=== PATIENT | male | born 1990 | race Caucasian/White ===

== ENCOUNTER 2022-08-07 19:23 | Inpatient (IN) | payer OTHER, SELFPAY ==
--- NOTE | ~2022-08-07 | CT_ITS ---
EXAMINATION: CT ABDOMEN AND PELVIS WITHOUT CONTRAST CLINICAL INFORMATION: Right lower quadrant pain, question appendicitis COMPARISON: None TECHNIQUE: Multidetector volumetric imaging was performed from the superior aspect of the liver through the pubic symphysis. Sagittal and coronal reformatted images were obtained on the technologist's workstation. This CT examination was performed using dose optimization techniques as appropriate, variously including the following: *Automated exposure control *Adjustment of mA and/or kV according to patient size (this includes techniques or standardized protocols for targeted exams where dose is matched to indication/reason for exam; i.e. extremities or head) *Use of iterative reconstruction technique DLP: 736 mGy-cm FINDINGS: LUNG BASES: The visualized lung bases are unremarkable. LIVER, GALLBLADDER, AND BILIARY TREE: The liver is normal in size, shape, and attenuation. No focal hepatic lesion or biliary ductal dilatation is present. The gallbladder is unremarkable with no evidence of radiopaque gallstones, gallbladder wall thickening, or obvious pericholecystic inflammatory changes. PANCREAS: Unremarkable. SPLEEN: Unremarkable. ADRENAL GLANDS: Unremarkable. KIDNEYS AND URETERS: The kidneys are normal in size, shape, and attenuation. No hydronephrosis, hydroureter, or calculi seen. No perinephric stranding. BLADDER: Nearly empty and not well evaluated. GASTROINTESTINAL TRACT: The small and large bowel are unremarkable. The appendix is unremarkable. No free fluid or free air is seen. ABDOMINAL WALL: No significant hernia is appreciated. LYMPH NODES: Normal. VASCULAR: Unremarkable. PELVIC VISCERA: Unremarkable. OSSEOUS STRUCTURES: Unremarkable. CT/CT abdomen pelvis wo IV con IMPRESSION: No acute findings identified in the abdomen/pelvis. Normal appendix.
[2022-08-07 20:00] VITALS: BP 150/80; PULSE 131; RESP 20; TEMP 36.1; O2SAT 97; BMI 29.0
--- NOTE | 2022-08-07 20:03 | ED.GENADULT ---
HPI - General Adult General Chief complaint: Nausea/Vomiting/Diarrhea <Lianne Clay MD - Last Filed: 08/07/22 20:09> Stated complaint: vomit non-stop, abd pain <Lianne Clay MD - Last Filed: 08/07/22 20:09> Time Seen by Provider: 08/07/22 20:52 <Lianne Clay MD - Last Filed: 08/07/22 20:09> Source: patient <SUZANNE Alejo - Last Filed: 08/07/22 22:33> Mode of arrival: ambulatory <SUZANNE Alejo - Last Filed: 08/07/22 22:33> Limitations: no limitations <SUZANNE Alejo Last Filed: 08/07/22 22:33> History of Present Illness HPI narrative: 32-year-old male no past pertinent medical history presents with 3 days of abdominal pain that began in the epigastric area and then gravitated towards the right lower abdominal quadrant. Patient still has a past his appendix. Associated symptoms include nausea, vomiting, fever, chills. Patient states the pain is a stabbing pain that was at 1st colicky and now is constant. Patient states it feels like his right lower quadrant is going to explode. Patient has not been able to tolerate any p.o. intake over the past 3 days. Patient took Tylenol home, no relief. No known sick contacts. Patient T-max was 101.2 degrees this morning. Denies chest pain, shortness of breath, diarrhea, hematuria, increased urination, foul smell to urine, incontinence of urine or stool, lower back pain, numbness or tingling of the extremities, saddle paresthesias. <SUZANNE Alejo - Last Filed: 08/07/22 22:33> Related Data Allergies/adverse reactions: Allergies Allergy/AdvReac Type Severity Reaction Status Date / Time No Known Allergies Allergy Verified 08/07/22 20:04 <Lianne Clay MD - Last Filed: 08/07/22 20:09> Review of Systems Review of Systems: Constitutional : No Weight loss, + Fever, + Chills, No Fatigue, No Malaise ENT/Mouth : No sore throat, No Rhinorrhea Eyes: No Eye Pain, No Swelling, No Redness Cardiovascular : No Chest Pain, No SOB, No Dyspnea on Exertion, No Orthopnea, No Edema, No Palpitations Respiratory : No Cough, No Sputum, No Wheezing Gastrointestinal : + Nausea, + Vomiting, No Diarrhea, No Constipation, + abdominal Pain, No Hematochezia, No Melena Genitourinary : No Dysuria, No Urinary Frequency, No Hematuria, Musculoskeletal : No joint pain, No Myalgias, No Joint Swelling Skin : No Skin Lesions, No rash Neuro : No Weakness, No Numbness, No Dizziness, No Headache Psych : No Anxiety/Panic, No Depression All other systems reviewed and are negative <SUZANNE Alejo - Last Filed: 08/07/22 22:33> Yes all other systems are reviewed and are negative <SUZANNE Alejo - Last Filed: 08/07/22 22:33> [facility], [facility] Past Medical History Attestation statement: The following information was validated with the patient. <SUZANNE Alejo - Last Filed: 08/07/22 22:33> Source: old records reviewed and nursing notes reviewed <SUZANNE Alejo - Last Filed: 08/07/22 22:33> Social History Social History: Social History Advance Directives: No Advance Directives Information Provided: No <Linane Clay MD - Last Filed: 08/07/22 20:09> Physical Exam ED Vital Signs: Vital Signs - 24 hr 08/07/22 20:00 08/07/22 21:08 08/07/22 22:10 Temperature 97 F 97.8 F 98.1 F Pulse Rate 131 H 99 84 Respiratory Rate 20 18 18 Blood Pressure 150/80 H 150/82 H 138/82 Pulse Oximetry 97 96 100 Oxygen Delivery Method Room Air Room Air Room Air BMI result Body Mass Index 29.0 <Lianne Clay MD - Last Filed: 08/07/22 20:09> Vital Signs - 24 hr 08/07/22 20:00 08/07/22 21:08 08/07/22 22:10 Temperature 97 F 97.8 F 98.1 F Pulse Rate 131 H 99 84 Respiratory Rate 20 18 18 Blood Pressure 150/80 H 150/82 H 138/82 Pulse Oximetry 97 96 100 Oxygen Delivery Method Room Air Room Air Room Air BMI result Body Mass Index 29.0 Patient tachycardic and hypertensive, likely secondary to pain and/or infection <SUZANNE Alejo - Last Filed: 08/07/22 22:33> Appearance: Alert.? Oriented X3.? No acute distress.? Head: Normocephalic, atraumatic, no step-offs or deformities Eyes: Pupils equal, round and reactive to light.? CVS: Normal heart rate and rhythm.? Pulses normal.? Respiratory: No respiratory distress.? Breath sounds normal.? Abdomen: Soft and + tender to RLQ .? Skin: Skin warm and dry.? Normal skin color.? Normal skin turgor.? Extremities: No lower extremity edema.? No calf ttp. 5/5 strength to bilateral upper and lower extremities Back: No midline tenderness, no C-spine tenderness, full range of motion, no CVA tenderness bilaterally Neuro: Oriented X 3.? No motor deficit.? No sensory deficit. CN 2-12 intact <SUZANNE Alejo - Last Filed: 08/07/22 22:33> Course Course Course Narrative: 32M with 3 days nausea and vomiting with associated fevers and chills, -diarrhea. Pt drank etoh 4 days ago and also smoked weed 4 days ago. VS Reviewed GEN: NAD EARS: wnl THROAT: wnl LUNGS: CTAB CVS: RRR ABD: epigastric pain/ND <Lianne Clay MD - Last Filed: 08/07/22 20:09> Reevaluation(s) Reevaluation #1: CBC appears to have a leukocytosis concerns for reactive leukocytosis versus infection based off patient's presentation. Patient noted to be hemoconcentrated with elevated hemoglobin and hematocrit, receiving IV fluids at this time. Also noted to have elevated platelets likely secondary to poor p.o. intake/dehydration. Patient noted to have an elevated anion gap as well as elevated BUN and creatinine likely secondary to poor p.o. intake/dehydration. Patient's lactic acid 3.5 likely secondary to dehydration. Ethanol negative. Lipase within normal limits. Flu/COVID negative. Patient was given Zosyn due to leukocytosis and initial presentation. Being hydrated with 30 cc/kilos bolus. CT of the abdomen and pelvis with no acute findings. Normal appendix. At this time patient not tolerating p.o., will be admitted to the hospitalist for acute kidney injury, dehydration and inability to tolerate p.o.. <SUZANNE Alejo - Last Filed: 08/07/22 22:33> Time: 22:31 <SUZANNE Alejo - Last Filed: 08/07/22 22:33> Medications Administered Discontinued Medications Generic Name Dose Route Start Last Admin Trade Name Freq PRN Reason Stop Dose Admin Sodium Chloride 1,000 mls @ 999 mls/hr 08/07/22 20:15 08/07/22 21:08 Ns IV 08/07/22 21:15 Not Given .Q1H1M IZABELA Sodium Chloride 2,993.7 mls @ 2,993.7 mls/hr 08/07/22 20:52 08/07/22 22:16 Ns 30 ml/kg infuse over 1 hr (2993.7 ml) 08/07/22 21:51 Infused IV Infusion .Q1H STA Piperacillin Sod/Tazobactam 50 mls @ 100 mls/hr 08/07/22 20:52 08/07/22 22:17 Sod 3.375 gm/ Sodium Chloride IV 08/07/22 21:21 Infused ONCE ONE Infusion Morphine Sulfate 4 mg 08/07/22 21:15 08/07/22 21:23 Morphine Sulfate 4 Mg/Ml Cartridge IVPUSH 08/07/22 21:16 4 mg ONCE ONE Administration Protocol Ondansetron HCl 4 mg 08/07/22 20:05 08/07/22 20:07 Ondansetron Odt 4 Mg Tab.Rapdis TRANSLINGU 08/07/22 20:06 4 mg ONCE ONE Administration Ondansetron HCl 4 mg 08/07/22 20:52 08/07/22 21:09 Ondansetron Hcl 4 Mg/2 Ml Vial IVPUSH 08/07/22 20:53 4 mg ONCE ONE Administration <Lianne Clay MD - Last Filed: 08/07/22 20:09> Medications Administered Discontinued Medications Generic Name Dose Route Start Last Admin Trade Name Freq PRN Reason Stop Dose Admin Sodium Chloride 1,000 mls @ 999 mls/hr 08/07/22 20:15 08/07/22 21:08 Ns IV 08/07/22 21:15 Not Given .Q1H1M IZABELA Sodium Chloride 2,993.7 mls @ 2,993.7 mls/hr 08/07/22 20:52 08/07/22 22:16 Ns 30 ml/kg infuse over 1 hr (2993.7 ml) 08/07/22 21:51 Infused IV Infusion .Q1H STA Piperacillin Sod/Tazobactam 50 mls @ 100 mls/hr 08/07/22 20:52 08/07/22 22:17 Sod 3.375 gm/ Sodium Chloride IV 08/07/22 21:21 Infused ONCE ONE Infusion Morphine Sulfate 4 mg 08/07/22 21:15 08/07/22 21:23 Morphine Sulfate 4 Mg/Ml Cartridge IVPUSH 08/07/22 21:16 4 mg ONCE ONE Administration Protocol Ondansetron HCl 4 mg 08/07/22 20:05 08/07/22 20:07 Ondansetron Odt 4 Mg Tab.Rapdis TRANSLINGU 08/07/22 20:06 4 mg ONCE ONE Administration Ondansetron HCl 4 mg 08/07/22 20:52 08/07/22 21:09 Ondansetron Hcl 4 Mg/2 Ml Vial IVPUSH 08/07/22 20:53 4 mg ONCE ONE Administration <SUZANNE Alejo - Last Filed: 08/07/22 22:33> Medical Decision Making Medical Decision Making MDM Narrative: 32-year-old male presents with right lower quadrant pain, anorexia, inability to keep down p.o.. Physical examination with significant tenderness right lower quadrant. Patient actively vomiting upon exam. Concerns for possible appendicitis versus cholecystitis. Unlikely diverticulitis. Other differentials include viral infection. Concerns for dehydration, will rule out acute kidney injury or electrolyte abnormalities. Plan at this time labs, imaging, IV hydration will give Zofran for nausea vomiting. Will give morphine for pain. <SUZANNE Alejo - Last Filed: 08/07/22 22:33> Critical Care Time Critical Care Time Critical Care Time: No <SUZANNE Alejo - Last Filed: 08/07/22 22:33> Discharge Plan Discharge Clinical Impression: Lactic acidosis, Abdominal pain, NORA (acute kidney injury), Nausea & vomiting <Lianne Clay MD - Last Filed: 08/07/22 20:09> Patient Disposition: Admitted As Inpatient <Lianne Clay MD - Last Filed: 08/07/22 20:09>
[2022-08-07] MEDS: Ondansetron ODT 4 MG TAB.RAPDIS TRANSLINGU (20:07)
[2022-08-07 20:24] LABS: MANUAL DIFF FLAG NO
[2022-08-07 20:25] LABS: Basophils Absolute Auto 0.1 X10*3/uL (0.0-0.2); Basophils Percent Auto 0.4 % (0-2); Hemoglobin 18.8 g/dl (14.0-18.0); Imm Gran Abs Auto 0.08 X10*3/uL (0.00-0.03); Imm Gran Pct Auto 0.4 % (0.0-0.4); Lymphocytes Percent Auto 19.3 % (20-40); Mean Corpuscular HGB Conc 34.8 g/dl (31.0-36.0); Mean Corpuscular Hemoglobin 29.1 pg (27.0-33.0); Mean Corpuscular Volume 83.7 fL (80.0-98.0); Mean Platelet Volume 8.8 fL (9.4-12.4); Monocytes Absolute Auto 1.7 X10*3/uL (0.1-1.2); Monocytes Percent Auto 8.3 % (2-11); Neutrophils Absolute Auto 14.7 x10*3/uL (2.0-8.3); Neutrophils Percent Auto 71.6 % (45-73); Platelet Count 419 X10*3/uL (160-400); Red Blood Count 6.45 X10*6/uL (4.60-5.80); Red Cell Distribution Width 12.6 % (11.0-16.0); SCAN SMEAR FLAG 1; White Blood Count 20.6 X10*3/uL (4.8-10.8)
[2022-08-07 20:42] LABS: COVID-19 Test Negative (Negative); IDNOW Serial# 16C4AD1C
[2022-08-07 20:43] LABS: IDNOW Serial# BCCEAD1C; Influenza A Negative (Negative); Influenza B2 Negative (Negative)
[2022-08-07 20:48] LABS: Alanine Aminotransferase 35 U/L (0-40); Albumin Level 5.8 g/dL (3.5-5.0); Alkaline Phosphatase 143 U/L (39-117); Anion Gap 24 (12-20); Aspartate Amino Transferase 34 U/L (5-37); Bilirubin Total 1.5 mg/dL (0.0-1.0); Blood Urea Nitrogen 29 mg/dL (9-16); Calcium 11.6 mg/dL (8.4-10.2); Carbon Dioxide 21 mmol/L (22-29); Chloride 97 mmol/L (96-108); Creatinine Clr Calc Pharmacy 37.2; Estimated Glomerular Filt Rate 20; Ethanol < 10 mg/dL; Glucose Random 168 mg/dL (60-115); Lipase 13 U/L (8-78); Sodium 138 mmol/L (135-145); Total Protein 9.8 g/dL (6.5-8.0)
[2022-08-07 21:08] VITALS: BP 150/82; PULSE 99; RESP 18; TEMP 36.6; O2SAT 96
[2022-08-07] MEDS: ondansetron HCL 4 MG/2 ML VIAL IVPUSH ×2 (21:09→23:25)
[2022-08-07] MEDS: Piperacillin Sodium/Tazobactam 3.375 GM in 0.9 % Sodium Chloride 50 ML IV (21:09)
--- NOTE | 2022-08-07 21:09 | PC.NURSE ---
Care of patient in main ED assumed now. 2 PIVs immediately established and patient to CT.
[2022-08-07] MEDS: 0.9 % Sodium Chloride 2,993.7 ML 2993.7 ML IV (21:13)
[2022-08-07] MEDS: Morphine Sulfate 4 MG/ML CARTRIDGE IVPUSH (21:23)
[2022-08-07 21:24] LABS: Glucose, Whole Blood 168 mg/dL (60-115)
[2022-08-07 21:28] LABS: Lactic Acid 3.5 mmol/L (0.5-2.0)
--- NOTE | 2022-08-07 21:51 | PM.CNGS ---
History of Present Illness Consult details Consult date: 08/08/22 Reason for consult: abdominal pain Requesting physician: Danielle Agustin Narrative: The pt is a 32y male with 3 days of vomiting & abdominal pain who presented with RLQ abd pain, vomiting, dehydration, lactic acidosis to 3.5 & leukocytosis. I was asked to assist in his evaluation due to concerns of acute surgical pathology such as appendicitis. In after roughly 12 hours of admission and IV hydration and notes that he is improved but continues to have crampy right lower quadrant abdominal pain. He denies any chronic watery diarrhea or bloody diarrhea and notes that this is never happened before. He does report daily cannabis use and notes that he was using an unknown street drug and is positive for opiates in his toxicology, however it is unclear if this is secondary to meds administered in the emergency department or other use. The patient otherwise denies chest pain, difficulty breathing, neurologic symptoms and does note that he feels better but is still having crampy abdominal pain in the right lower quadrant. He denies any flatus & BM. Review of Systems Review of Systems: Yes all other systems are reviewed and are negative Constitutional: Constitutional: Reports as per [facility] Past Medical History Medical History Marijuana abuse Tobacco abuse Social History Social History Household Members: Family Housing: Apartment Patient Tobacco Use Status: Current everyday Tobacco user Tobacco use type: Cigarette Second Hand Smoke Exposure: No Substance Use Type: Marijuana Meds Allergies Allergy/AdvReac Type Severity Reaction Status Date / Time No Known Allergies Allergy Verified 08/07/22 20:04 Active Medications: Current Medications Sodium Chloride (Ns) 1,000 mls @ 999 mls/hr IV .Q1H1M IZABELA Stop: 08/07/22 22:30 Sodium Chloride (Ns) 1,000 mls @ 999 mls/hr IV .Q1H1M IZABELA Stop: 08/07/22 22:30 Sodium Chloride (Ns) 1,000 mls @ 999 mls/hr IV .Q1H1M IZABELA Stop: 08/07/22 22:30 Physical Exam Vital Signs: Vital Signs: Last Vital Signs Temp 97.8 F 08/07/22 21:08 Pulse 99 08/07/22 21:08 Resp 18 08/07/22 21:08 BP 150/82 H 08/07/22 21:08 Pulse Ox 96 08/07/22 21:08 O2 Del Method 08/07/22 21:08 BMI result Body Mass Index 29.0 The patient is non-toxic & in good spirits NC/AT, PERRLA, EOMI Mood, affect & judgment all appear appropriate Sclera anicteric conjunctiva pink and moist Oropharynx is clear with no aphthous ulcers, Mallampati class 4, mucous membranes moist Neck is supple with no masses or adenopathy Heart is regular, normal S1-S2 no rubs or murmurs Lungs are clear and equal anteriorly with no audible wheezing, rubs or dullness to percussion No CVA tenderness present Abdomen is overweight with no demonstrable hernias. Abdomen is soft with no rebound, rigidity or guarding. no masses or bruits are present. Rectal exam is deferred Skin has good turgor and is free of rashes Extremities free of cyanosis clubbing edema Results Labs Result diagrams: 08/08/22 06:21 08/08/22 06:21 Labs: Abnormal lab results 08/07/22 08/07/22 08/07/22 Range/Units 20:16 20:16 21:03 WBC 20.6 H (4.8-10.8) X10*3/uL RBC 6.45 H (4.60-5.80) X10*6/uL Hgb 18.8 H (14.0-18.0) g/dl Hct 54.0 H (42.0-52.0) % Plt Count 419 H (160-400) X10*3/uL MPV 8.8 L (9.4-12.4) fL Lymph % (Auto) 19.3 L (20-40) % [place] # (Auto) 1.7 H (0.1-1.2) X10*3/uL Abs Immat Gran (auto) 0.08 H (0.00-0.03) X10*3/uL Absolute Neuts (auto) 14.7 H (2.0-8.3) x10*3/uL Carbon Dioxide 21 L (22-29) mmol/L Anion Gap 24 H (12-20) BUN 29 H (9-16) mg/dL Creatinine 3.54 H (0.5-1.4) mg/dL POC Glucose (60-115) mg/dL Random Glucose 168 H (60-115) mg/dL Lactic Acid 3.5 H* (0.5-2.0) mmol/L Calcium 11.6 H (8.4-10.2) mg/dL Total Bilirubin 1.5 H (0.0-1.0) mg/dL Alkaline Phosphatase 143 H (39-117) U/L Total Protein 9.8 H (6.5-8.0) g/dL Albumin 5.8 H (3.5-5.0) g/dL 08/07/22 Range/Units 21:20 WBC (4.8-10.8) X10*3/uL RBC (4.60-5.80) X10*6/uL Hgb (14.0-18.0) g/dl Hct (42.0-52.0) % Plt Count (160-400) X10*3/uL MPV (9.4-12.4) fL Lymph % (Auto) (20-40) % [place] # (Auto) (0.1-1.2) X10*3/uL Abs Immat Gran (auto) (0.00-0.03) X10*3/uL Absolute Neuts (auto) (2.0-8.3) x10*3/uL Carbon Dioxide (22-29) mmol/L Anion Gap (12-20) BUN (9-16) mg/dL Creatinine (0.5-1.4) mg/dL POC Glucose 168 H (60-115) mg/dL Random Glucose (60-115) mg/dL Lactic Acid (0.5-2.0) mmol/L Calcium (8.4-10.2) mg/dL Total Bilirubin (0.0-1.0) mg/dL Alkaline Phosphatase (39-117) U/L Total Protein (6.5-8.0) g/dL Albumin (3.5-5.0) g/dL Short CBC 08/07/22 Range/Units 20:16 WBC 20.6 H (4.8-10.8) X10*3/uL Hgb 18.8 H (14.0-18.0) g/dl Hct 54.0 H (42.0-52.0) % Plt Count 419 H (160-400) X10*3/uL BMP 08/07/22 20:16 Sodium 138 Potassium 4.0 Chloride 97 Carbon Dioxide 21 L BUN 29 H Creatinine 3.54 H Calcium 11.6 H Liver Function 08/07/22 Range/Units 20:16 Total Bilirubin 1.5 H (0.0-1.0) mg/dL AST 34 (5-37) U/L ALT 35 (0-40) U/L Alkaline Phosphatase 143 H (39-117) U/L Albumin 5.8 H (3.5-5.0) g/dL All other labs normal. Imaging Abdomen CT scan report/results: report reviewed and image reviewed CT scan - pelvis: report reviewed and image reviewed Assessment and Plan (1) Abdominal pain: Status: Acute (2) Lactic acidosis: Status: Acute (3) NORA (acute kidney injury): Status: Acute Plan I've personally reviewed the CT images & CT report & concur with the radiologist that there's no obvious acute surgical pathology, free air or intra-abdominal abscess, and a normal appendix is seen. Given this, I suspect severe dehydration is causing severe intestinal spasms that should resolve with aggressive IVF hydration. In my interpretation of the CT, the ascending colon may have some edema in the wall, but it may be artifactual from intraluminal radio opaque material. If no overnight improvement with IV hydration, a repeat CT with oral & IV contrast may be helpful, assuming improvement of BUN & Creatinine. Keep NPO until vomiting resolves. Supportive meds/antiemetics; trend labs. Tox screen is pending. Will follow; please call me with surgical questions. ADDENDUM 08/08/2022 0821 The patient's exam and interval improved go against appendicitis or other acute surgical pathology. Given the normal CT and improvement, I suspect his white count will normalize with hydration. Patient may have cyclical vomiting and dehydration related to his daily marijuana use and may benefit from counseling. Will sign off. Please call me if there are any surgical concerns. Procedures Date of Service Date of Service: 08/08/22
--- NOTE | 2022-08-07 22:05 | PM.IMHP ---
History of Present Illness Date of Service: 08/08/22 Chief Complaint: Abdominal Pain, Nausea/vomiting This is a 32-year-old male with pertinent history of tobacco use disorder, marijuana use disorder presents to the emergency department for evaluation abdominal pain/nausea/vomiting. Patient states it started 3 days prior to presentation. His last meal prior to the episode was [employer]. States he could not keep anything down and hence has had decreased p.o. intake over the last 2 days. Also has associated fever and chills. No blood in vomitus. No diarrhea. Abdominal pain is in the right lower quadrant, nonradiating, intermittent and without any relieving factors. Patient tried Tylenol at home but no relief. No sick contacts. He denies chest discomfort, palpitations, shortness of breath, changes in urinary or bowel habits. In the emergency department, NORA was noted. General surgery was consulted who requested admission and will evaluate the patient in a.m. Review of Systems Constitutional: Constitutional: Reports chills and Reports fever(s) Cardiovascular: Cardiovascular: Reports no additional cardiovascular complaints Respiratory: Respiratory: Reports no additional respiratory complaints Gastrointestinal: Gastrointestinal: Reports abdominal pain, Reports nausea and Reports vomiting [facility] Medical History (Updated 08/08/22 @ 00:06 by Madiha Hurst MD) Marijuana abuse Tobacco abuse Functional capacity: independent ambulation Pertinent family history: Does not know of significant medical history in family members Social History Advance Directives: No Advance Directives Information Provided: No Meds Allergies Allergy/AdvReac Type Severity Reaction Status Date / Time No Known Allergies Allergy Verified 08/07/22 20:04 Active Medications: Current Medications Sodium Chloride (Ns) 1,000 mls @ 999 mls/hr IV .Q1H1M IZABELA Stop: 08/07/22 22:30 Sodium Chloride (Ns) 1,000 mls @ 999 mls/hr IV .Q1H1M IZABELA Stop: 08/07/22 22:30 Sodium Chloride (Ns) 1,000 mls @ 999 mls/hr IV .Q1H1M IZABELA Stop: 08/07/22 22:30 Pharmacy Consult (Consult Rx Perform Med Rec) 1 each MISCELLANE ONCE PRN PRN Reason: Consult order Physical Exam Vital Signs and Narrative: Vital Signs: Last Vital Signs Temp 97.8 F 08/07/22 21:08 Pulse 99 08/07/22 21:08 Resp 18 08/07/22 21:08 BP 150/82 H 08/07/22 21:08 Pulse Ox 96 08/07/22 21:08 O2 Del Method 08/07/22 21:08 BMI result Body Mass Index 29.0 Middle-aged male lying in bed in mild distress Neck supple, no JVD Regular rate and rhythm, S1-S2 heard Regular breath sounds bilaterally, no wheezing or crackles appreciated Abdomen with generalized tenderness, no guarding, no rigidity, no rebound tenderness Patient is awake, alert and oriented to self, place, time and person ; no focal motor deficit Psych: Normal mood No pedal edema Results Labs CBC and Chem 7: 08/07/22 20:16 08/07/22 20:16 Labs: Laboratory Results - last 24 hr 08/07/22 08/07/22 08/07/22 20:16 20:16 20:16 MCV 83.7 MCH 29.1 MCHC 34.8 RDW 12.6 Plt Count 419 H MPV 8.8 L Immature Gran % (Auto) 0.4 Neut % (Auto) 71.6 Lymph % (Auto) 19.3 L Robertson % (Auto) 8.3 Eos % (Auto) 0.0 Baso % (Auto) 0.4 Lymph # (Auto) 4.0 Robertson # (Auto) 1.7 H Eos # (Auto) 0.0 Baso # (Auto) 0.1 Abs Immat Gran (auto) 0.08 H Absolute Neuts (auto) 14.7 H Absolute Nucleated RBC 0.000 Nucleated RBC % (auto) 0.0 Anion Gap 24 H Estim Creat Clear Calc 37.2 Estimated GFR 20 POC Glucose Random Glucose 168 H Lactic Acid Calcium 11.6 H Total Bilirubin 1.5 H AST 34 ALT 35 Alkaline Phosphatase 143 H Total Protein 9.8 H Albumin 5.8 H Lipase 13 Ethyl Alcohol < 10 COVID-19 (RADHA) COVID-19 Clin Com Influenza Type A (SEB) Negative Influenza Type B (SEB) Negative Influenza A & B Note See Note 08/07/22 08/07/22 08/07/22 20:16 21:03 21:20 MCV MCH MCHC RDW Plt Count MPV Immature Gran % (Auto) Neut % (Auto) Lymph % (Auto) Robertson % (Auto) Eos % (Auto) Baso % (Auto) Lymph # (Auto) Robertson # (Auto) Eos # (Auto) Baso # (Auto) Abs Immat Gran (auto) Absolute Neuts (auto) Absolute Nucleated RBC Nucleated RBC % (auto) Anion Gap Estim Creat Clear Calc Estimated GFR POC Glucose 168 H Random Glucose Lactic Acid 3.5 H* Calcium Total Bilirubin AST ALT Alkaline Phosphatase Total Protein Albumin Lipase Ethyl Alcohol COVID-19 (RADHA) Negative COVID-19 Clin Com See Note Influenza Type A (SEB) Influenza Type B (SEB) Influenza A & B Note Imaging Radiologist's Impressions: Impressions Abdomen/Pelvis CT 08/07/22 21:13 IMPRESSION: No acute findings identified in the abdomen/pelvis. Normal appendix. Assessment and Plan (1) NORA (acute kidney injury): Status: Acute (2) Lactic acidosis: Status: Acute (3) Abdominal pain: Status: Acute (4) Tobacco abuse: Status: Acute (5) Marijuana abuse: Status: Acute Plan This is a 32-year-old male with pertinent history of tobacco use disorder, marijuana use disorder presents to the emergency department for evaluation abdominal pain/nausea/vomiting. #. Abdominal pain/nausea/vomiting -CT abdomen pelvis unrevealing. General surgery consulted from the ER, appreciate assistance. Treat symptomatically for now. Defer antibiotics. Resuscitating with IV crystalloids. -UDS positive for marijuana, ?cannabis hyperemesis syndrome. Initiating capsaicin cream. #. Acute kidney injury, stage III -prerenal in the setting of intravascular volume depletion. Monitor with fluid resuscitation. Avoid nephrotoxins #. Lactic acidosis type A: Trended down with IV crystalloids #. Relative polycythemia: Due to above #. Tobacco use disorder: Refused nicotine patch DVT prophylaxis: None. Patient is ambulatory Full code Diet: NPO Admit as inpatient for IV fluid resuscitation in a patient with acute kidney injury/lactic acidosis Quality Stroke Does the patient have a stroke diagnosis?: No VTE Prior VTE?: No VTE Risk Level:: Medical - low VTE Device Contraindication: Treatment Not Indicated VTE Drug Contraindication: Treatment Not Indicated
[2022-08-07 22:10] VITALS: BP 138/82; PULSE 84; RESP 18; TEMP 36.7; O2SAT 100
[2022-08-07 22:30] VITALS: PULSE 65; RESP 17; TEMP 37.2; O2SAT 99
[2022-08-07 22:55] LABS: Appearance Urine Clear; Color Urine Yellow; Glucose Urine UA Negative (Negative); Leukocyte Esterase Urine Negative (Negative); Nitrite Urine Negative (Negative); PH 7.5 (5.0-9.0); UMIC TRIGGER UACC YES; Urine Blood Trace (Negative); Urine Ketones Trace mg/dL (Negative); Urine Protein 30 (1+) mg/dL (Neg-Trace)
[2022-08-07 23:10] LABS: Reflex Lactate? Lactic Acid Added
[2022-08-07 23:11] LABS: Amphetamine Screen Urine Not Detected (Not Detect); Barbiturates, Urine Not Detected (Not Detect); Benzodiazepines Screen Urine Not Detected (Not Detect); Cannabinoid Screen Urine POSITIVE (Not Detect); Cocaine Screen Urine Not Detected (Not Detect); Fentanyl, urine Not Detected (Not Detect); Opiate Screen Urine POSITIVE (Not Detect); Phencyclidine Screen Urine Not Detected (Not Detect)
[2022-08-07 23:16] LABS: Bacteria Urine None Seen (None Seen); Leucine Crystal Present; RBC Urine 0-2 /HPF (0-2); Squamous Epithelial Cell Urine 0-2 /HPF (0-2); WBC Urine 0-5 /HPF (0-5)
[2022-08-07] MEDS: 0.9 % Sodium Chloride Flush 3 ML SYRINGE IVFLUSH (23:24)
[2022-08-07 23:59] LABS: ~Lactic Acid-LAB USE ONLY 1.9 mmol/L (0.5-2.0)
[2022-08-08] VITALS: RESP 19
[2022-08-08] MEDS: LORazepam 1 MG TABLET 2 MG PO
[2022-08-08] MEDS: Melatonin 3 MG TABLET 6 MG PO (02:03)
[2022-08-08 02:06] VITALS: BP 117/68; PULSE 79; RESP 17; TEMP 36.5; O2SAT 96
[2022-08-08 04:11] VITALS: BP 141/74; PULSE 71; RESP 18; TEMP 36.9; O2SAT 97
[2022-08-08 05:22] LABS: Estimated Average Glucose 108 mg/dL; Hemoglobin A1c % 5.4 %
[2022-08-08] MEDS: ondansetron HCL 4 MG/2 ML VIAL IVPUSH ×3 (05:36→15:28)
[2022-08-08 07:12] LABS: MANUAL DIFF FLAG NO
[2022-08-08 07:19] LABS: Basophils Absolute Auto 0.1 X10*3/uL (0.0-0.2); Basophils Percent Auto 0.4 % (0-2); Eosinophils Percent Auto 0.2 % (0-4); Hematocrit 49.2 % (42.0-52.0); Hemoglobin 16.2 g/dl (14.0-18.0); Imm Gran Abs Auto 0.11 X10*3/uL (0.00-0.03); Imm Gran Pct Auto 0.7 % (0.0-0.4); Lymphocytes Absolute Auto 2.9 X10*3/uL (1.2-4.9); Lymphocytes Percent Auto 17.3 % (20-40); Mean Corpuscular HGB Conc 32.9 g/dl (31.0-36.0); Mean Corpuscular Hemoglobin 28.6 pg (27.0-33.0); Mean Corpuscular Volume 86.8 fL (80.0-98.0); Mean Platelet Volume 9.2 fL (9.4-12.4); Monocytes Absolute Auto 1.4 X10*3/uL (0.1-1.2); Monocytes Percent Auto 8.5 % (2-11); Neutrophils Absolute Auto 12.1 x10*3/uL (2.0-8.3); Neutrophils Percent Auto 72.9 % (45-73); Platelet Count 369 X10*3/uL (160-400); Red Blood Count 5.67 X10*6/uL (4.60-5.80); Red Cell Distribution Width 12.7 % (11.0-16.0); White Blood Count 16.6 X10*3/uL (4.8-10.8)
[2022-08-08 07:40] LABS: Anion Gap 18 (12-20); Blood Urea Nitrogen 21 mg/dL (9-16); Carbon Dioxide 24 mmol/L (22-29); Chloride 101 mmol/L (96-108); Estimated Glomerular Filt Rate 52; Glucose Random 116 mg/dL (60-115); Potassium 3.9 mmol/L (3.3-5.1); Sodium 139 mmol/L (135-145)
[2022-08-08 07:45] VITALS: BP 126/58; PULSE 86; RESP 18; TEMP 37.1; O2SAT 96
[2022-08-08 08:02] LABS: C Reactive Protein 0.58 mg/dL (< or = 0.50)
[2022-08-08] MEDS: 0.9 % Sodium Chloride Flush 3 ML SYRINGE IVFLUSH (09:18)
--- NOTE | 2022-08-08 09:47 | HO.PM.IMPN ---
Subjective Subjective Date of Service: 08/08/22 Interval History: severe nausea abd pain relieved by hot showers uses 3g THC daily Review of Systems Review of Systems: Yes all other systems are reviewed and are negative Physical Exam Vital Signs: Vital Signs: Last Vital Signs Temp 98.8 F 08/08/22 07:45 Pulse 86 08/08/22 07:45 Resp 18 08/08/22 07:45 BP 126/58 L 08/08/22 07:45 Pulse Ox 96 08/08/22 07:45 O2 Del Method 08/08/22 07:45 BMI result Body Mass Index 29.0 Gen: in no acute distress HEENT: sclera anicteric, moist mucus membranes Neck: supple Lungs: clear to auscultation bilaterally Heart: regular rate and rhythm, no murmurs Abd: soft, diffuse tenderness, no guarding, non-distended Ext: no edema Skin: warm/well-perfused Neuro: alert and oriented x3, no focal findings Psych: appropriate affect Objective Data Active Medications Acetaminophen (Acetaminophen 325 Mg Tablet) 650 mg PO Q6H PRN PRN Reason: Pain, Mild (Pain Scale 1-3) Capsaicin (Capsaicin 0.025% Cream 60 Gm Tube) 1 appl TOPICAL QID [facility]; Protocol Last Admin: 08/08/22 09:25 Dose: Not Given Documented By: TESS Non-Admin Reason: not available, called pharmacy to deliver Melatonin (Melatonin 3 Mg Tablet) 6 mg PO BEDTIME PRN PRN Reason: Insomnia Last Admin: 08/08/22 02:03 Dose: 6 mg Documented By: CRUZ Ondansetron HCl (Ondansetron Hcl 4 Mg/2 Ml Vial) 4 mg IVPUSH Q8H PRN PRN Reason: Nausea and Vomiting Last Admin: 08/08/22 05:36 Dose: 4 mg Documented By: VIRGIL Sodium Chloride (0.9 % Sodium Chloride Flush 3 Ml Syringe) 3 ml IVFLUSH [facility] Last Admin: 08/08/22 09:18 Dose: 3 ml Documented By: TESS Labs CBC & Chem 7: 08/08/22 06:21 08/08/22 06:21 Labs: Laboratory Results - last 24 hr 08/07/22 08/07/22 08/07/22 20:16 20:16 20:16 MCV 83.7 MCH 29.1 MCHC 34.8 RDW 12.6 Plt Count 419 H MPV 8.8 L Immature Gran % (Auto) 0.4 Neut % (Auto) 71.6 Lymph % (Auto) 19.3 L [place] % (Auto) 8.3 Eos % (Auto) 0.0 Baso % (Auto) 0.4 Lymph # (Auto) 4.0 [place] # (Auto) 1.7 H Eos # (Auto) 0.0 Baso # (Auto) 0.1 Abs Immat Gran (auto) 0.08 H Absolute Neuts (auto) 14.7 H Absolute Nucleated RBC 0.000 Nucleated RBC % (auto) 0.0 Anion Gap 24 H Estim Creat Clear Calc 37.2 Estimated GFR 20 POC Glucose Random Glucose 168 H Estimat Average Glucose Hemoglobin A1c % Lactic Acid Lactic Acid F/U @ 2Hr Calcium 11.6 H Total Bilirubin 1.5 H AST 34 ALT 35 Alkaline Phosphatase 143 H C-Reactive Protein Total Protein 9.8 H Albumin 5.8 H Lipase 13 Urine Color Urine Appearance Urine pH Ur Specific [place] Urine Protein Urine Glucose (UA) Urine Ketones Urine Blood Urine Nitrite Ur Leukocyte Esterase Urine RBC Urine WBC Ur Squamous Epith Cells Leucine Crystals Urine Bacteria Hyaline Casts Urine Opiates Screen Urine Fentanyl Screen Ur Barbiturates Screen Ur Phencyclidine Scrn Ur Amphetamines Screen U Benzodiazepines Scrn Urine Cocaine Screen U Marijuana (THC) Screen Ethyl Alcohol < 10 COVID-19 (RADHA) COVID-19 Clin Com Influenza Type A (SEB) Negative Influenza Type B (SEB) Negative Influenza A & B Note See Note 08/07/22 08/07/22 08/07/22 20:16 20:16 21:03 MCV MCH MCHC RDW Plt Count MPV Immature Gran % (Auto) Neut % (Auto) Lymph % (Auto) [place] % (Auto) Eos % (Auto) Baso % (Auto) Lymph # (Auto) [place] # (Auto) Eos # (Auto) Baso # (Auto) Abs Immat Gran (auto) Absolute Neuts (auto) Absolute Nucleated RBC Nucleated RBC % (auto) Anion Gap Estim Creat Clear Calc Estimated GFR POC Glucose Random Glucose Estimat Average Glucose 108 Hemoglobin A1c % 5.4 Lactic Acid 3.5 H* Lactic Acid F/U @ 2Hr Calcium Total Bilirubin AST ALT Alkaline Phosphatase C-Reactive Protein Total Protein Albumin Lipase Urine Color Urine Appearance Urine pH Ur Specific [place] Urine Protein Urine Glucose (UA) Urine Ketones Urine Blood Urine Nitrite Ur Leukocyte Esterase Urine RBC Urine WBC Ur Squamous Epith Cells Leucine Crystals Urine Bacteria Hyaline Casts Urine Opiates Screen Urine Fentanyl Screen Ur Barbiturates Screen Ur Phencyclidine Scrn Ur Amphetamines Screen U Benzodiazepines Scrn Urine Cocaine Screen U Marijuana (THC) Screen Ethyl Alcohol COVID-19 (RADHA) Negative COVID-19 Clin Com See Note Influenza Type A (SEB) Influenza Type B (SEB) Influenza A & B Note 08/07/22 08/07/22 08/07/22 21:20 22:45 22:45 MCV MCH MCHC RDW Plt Count MPV Immature Gran % (Auto) Neut % (Auto) Lymph % (Auto) [place] % (Auto) Eos % (Auto) Baso % (Auto) Lymph # (Auto) [place] # (Auto) Eos # (Auto) Baso # (Auto) Abs Immat Gran (auto) Absolute Neuts (auto) Absolute Nucleated RBC Nucleated RBC % (auto) Anion Gap Estim Creat Clear Calc Estimated GFR POC Glucose 168 H Random Glucose Estimat Average Glucose Hemoglobin A1c % Lactic Acid Lactic Acid F/U @ 2Hr Calcium Total Bilirubin AST ALT Alkaline Phosphatase C-Reactive Protein Total Protein Albumin Lipase Urine Color Yellow Urine Appearance Clear Urine pH 7.5 Ur Specific [place] 1.020 Urine Protein 30 (1+) H Urine Glucose (UA) Negative Urine Ketones Trace Urine Blood Trace H Urine Nitrite Negative Ur Leukocyte Esterase Negative Urine RBC 0-2 Urine WBC 0-5 Ur Squamous Epith Cells 0-2 Leucine Crystals Present Urine Bacteria None Seen Hyaline Casts 11-20 Urine Opiates Screen POSITIVE H Urine Fentanyl Screen Not Detected Ur Barbiturates Screen Not Detected Ur Phencyclidine Scrn Not Detected Ur Amphetamines Screen Not Detected U Benzodiazepines Scrn Not Detected Urine Cocaine Screen Not Detected U Marijuana (THC) Screen POSITIVE H Ethyl Alcohol COVID-19 (RADHA) COVID-19 Clin Com Influenza Type A (SEB) Influenza Type B (SEB) Influenza A & B Note 08/07/22 08/08/22 08/08/22 23:38 06:21 06:21 MCV 86.8 MCH 28.6 MCHC 32.9 RDW 12.7 Plt Count 369 MPV 9.2 L Immature Gran % (Auto) 0.7 H Neut % (Auto) 72.9 Lymph % (Auto) 17.3 L [place] % (Auto) 8.5 Eos % (Auto) 0.2 Baso % (Auto) 0.4 Lymph # (Auto) 2.9 [place] # (Auto) 1.4 H Eos # (Auto) 0.0 Baso # (Auto) 0.1 Abs Immat Gran (auto) 0.11 H Absolute Neuts (auto) 12.1 H Absolute Nucleated RBC 0.000 Nucleated RBC % (auto) 0.0 Anion Gap 18 Estim Creat Clear Calc 85.0 Estimated GFR 52 POC Glucose Random Glucose 116 H Estimat Average Glucose Hemoglobin A1c % Lactic Acid Lactic Acid F/U @ 2Hr 1.9 Calcium 10.0 D Total Bilirubin AST ALT Alkaline Phosphatase C-Reactive Protein 0.58 H Total Protein Albumin Lipase Urine Color Urine Appearance Urine pH Ur Specific [place] Urine Protein Urine Glucose (UA) Urine Ketones Urine Blood Urine Nitrite Ur Leukocyte Esterase Urine RBC Urine WBC Ur Squamous Epith Cells Leucine Crystals Urine Bacteria Hyaline Casts Urine Opiates Screen Urine Fentanyl Screen Ur Barbiturates Screen Ur Phencyclidine Scrn Ur Amphetamines Screen U Benzodiazepines Scrn Urine Cocaine Screen U Marijuana (THC) Screen Ethyl Alcohol COVID-19 (RADHA) COVID-19 Clin Com Influenza Type A (SEB) Influenza Type B (SEB) Influenza A & B Note Assessment and Plan (1) Marijuana abuse: Status: Acute (2) NORA (acute kidney injury): Status: Acute Plan d#2 32yo M with tobacco abuse, cannabis abuse presenting with abd pain/N/V and found to have NORA # cannabinoid hyperemesis syndrome - ondansetron, IV fluids, NPO, counseling to avoid THC use # prerenal NORA - improving with isotonic fluid resuscitation; continue # lactic acidosis - resolved # leukocytosis - improving; no signs of infection; suspect reactive # tobacco abuse - refused NRT # VTE ppx: SCDs # dispo: anticipate home p resolution of NORA + taking POs In my clinical judgment, the patient requires continued inpatient hospitalization for the following reasons: IV fluids Quality Stroke Does the patient have a stroke diagnosis?: No VTE Prior VTE?: No VTE Risk Level:: Medical - low VTE Device Contraindication: Treatment Not Indicated VTE Drug Contraindication: Treatment Not Indicated
[2022-08-08] MEDS: Lactated Ringers 1,000 ML 125 ML IVCONT (10:07)
[2022-08-08] MEDS: Metoclopramide HCl 10 MG/2 ML VIAL 5 MG IVPUSH (10:57)
[2022-08-08] MEDS: Morphine Sulfate 2 MG/ML CARTRIDGE IVPUSH ×2 (11:39→15:28)
--- NOTE | 2022-08-08 14:05 | MHC.CM.PN ---
EMR REVIEWED, PT ADMITTED W/ABDOMINAL PAIN, CM MET W/PT WHO REPORTS HE IS INDEP W/ALL CARE, DENIES USE OF DME AND HOME SERVICES AND WOULD LIKE TO DISCHARGE TODAY W/A SCRIPT FOR ANTI NAUSEA MEDICATION. PT REPORTS HE DOES NOT HAVE A PCP AND WAS GIVEN PAMPHLET W/[facility] PROVIDERS. PT ONLY RECEIVED ONE COVID VACCINE AND DOES NOT RECALL IF IT WAS PFIZER OR MODERNA & DENIES IT WAS J&J, PT EDUCATED ON AND DECLINES TO COMPLETE HCP AT THIS TIME. LISA DC LATER TODAY W/PT'S BEST FRIEND (AT BEDSIDE) FOR TRANSPORT
[2022-08-08] MEDS: Capsaicin 0.025% Cream 60 GM TUBE 1 APPL TOPICAL (15:28)
[2022-08-08 15:47] VITALS: BP 129/69; PULSE 58; RESP 16; TEMP 36.3; O2SAT 96
--- NOTE | 2022-08-08 17:54 | PC.NURSE ---
Patient alert and oriented, states wants to go home and take a bath, eat and drink. Here NPO for N/V and abd pain. Patient encouraged to stay and be treated but decided to leave. Aware of risks of leaving, AMA form signed,IV out, and nursing dock supervisor aware.
--- NOTE | 2023-02-25 14:22 | P.DS_ITS ---
DS: Providers Provider Date of Service: 08/08/22 Date of admission: 08/07/22 22:06 Date of discharge: 08/08/22 Primary care physician: None Physician Consults: 08/07/22 21:00 Consult to General Surgery Stat Consulting Provider: Darrian Moura Reason for consultation: ? potential appendicitis Has provider been notified: Yes DS: Diagnosis Discharge Diagnosis (1) Marijuana abuse: Status: Acute (2) NORA (acute kidney injury): Status: Acute (3) Lactic acidosis: Status: Acute (4) Cannabinoid hyperemesis syndrome: Status: Acute (5) Left against medical advice: Status: Acute DS: Summary Hospital Course Hospital Course: from admit H+P by hospitalist Bernadette Hurst, 08/07/22: This is a 32-year-old male with pertinent history of tobacco use disorder, marijuana use disorder presents to the emergency department for evaluation abdominal pain/nausea/vomiting.? Patient states it started 3 days prior to presentation.? His last meal prior to the episode was [employer].? States he could not keep anything down and hence has had decreased p.o. intake over the last 2 days.? Also has associated fever and chills.? No blood in vomitus.? No diarrhea.? Abdominal pain is in the right lower quadrant, nonradiating, intermit tent and without any relieving factors.? Patient tried Tylenol at home but no relief.? No sick contacts.? He denies chest discomfort, palpitations, shortness of breath, changes in urinary or bowel habits. In the emergency department, NORA was noted.? General surgery was consulted who requested admission and will evaluate the patient in a.m. 32yo M with tobacco abuse, cannabis abuse (3g/d THC) presenting with abd pain/N/V and found to have NORA suspected due to prerenal state from vomiting from [facility]. Hospital course by problem: # cannabinoid hyperemesis syndrome - ondansetron, IV fluids, NPO, counseling to avoid THC use # prerenal NORA - improving with isotonic fluid resuscitation; continue # lactic acidosis - resolved # leukocytosis - improving; no signs of infection; suspect reactive # tobacco abuse - refused NRT Unfortunately, on 08/08/23 in the evening, the patient elected to sign out AGAINST MEDICAL ADVICE despite counseling on the risks of not completing treatment. Time Spent with Patient Time attestation: Total time managing care of this patient today __25__ minutes. Discharge coordination time: Less than 30 minutes Quality: Safe Use of Opioids Does Pt have an Active Cancer Diagnosis on the Problem List?: No Quality: Stroke Does the patient have a stroke diagnosis?: No Physical Exam Vital Signs: Vital Signs: Last Vital Signs Temp 97.4 F 08/08/22 15:47 Pulse 58 08/08/22 15:47 Resp 16 08/08/22 15:47 BP 129/69 08/08/22 15:47 Pulse Ox 96 08/08/22 15:47 O2 Del Method Room Air 08/08/22 15:47 BMI result Body Mass Index 29.0 see progress note for 08/08/22 for PE DS: Data Data Completed and Pending Completed studies during hospitalization [Text1]: Laboratory Results WBC 16.6 X10*3/uL (4.8-10.8) H 08/08/22 06:21 RBC 5.67 X10*6/uL (4.60-5.80) 08/08/22 06:21 Hgb 16.2 g/dl (14.0-18.0) 08/08/22 06:21 Hct 49.2 % (42.0-52.0) 08/08/22 06:21 MCV 86.8 fL (80.0-98.0) 08/08/22 06:21 MCH 28.6 pg (27.0-33.0) 08/08/22 06:21 MCHC 32.9 g/dl (31.0-36.0) 08/08/22 06:21 RDW 12.7 % (11.0-16.0) 08/08/22 06:21 Plt Count 369 X10*3/uL (160-400) 08/08/22 06:21 MPV 9.2 fL (9.4-12.4) L 08/08/22 06:21 Immature Gran % (Auto) 0.7 % (0.0-0.4) H 08/08/22 06:21 Neut % (Auto) 72.9 % (45-73) 08/08/22 06:21 Lymph % (Auto) 17.3 % (20-40) L 08/08/22 06:21 [place] % (Auto) 8.5 % (2-11) 08/08/22 06:21 Eos % (Auto) 0.2 % (0-4) 08/08/22 06:21 Baso % (Auto) 0.4 % (0-2) 08/08/22 06:21 Lymph # (Auto) 2.9 X10*3/uL (1.2-4.9) 08/08/22 06:21 [place] # (Auto) 1.4 X10*3/uL (0.1-1.2) H 08/08/22 06:21 Eos # (Auto) 0.0 X10*3/uL (0.0-0.4) 08/08/22 06:21 Baso # (Auto) 0.1 X10*3/uL (0.0-0.2) 08/08/22 06:21 Abs Immat Gran (auto) 0.11 X10*3/uL (0.00-0.03) H 08/08/22 06:21 Absolute Neuts (auto) 12.1 x10*3/uL (2.0-8.3) H 08/08/22 06:21 Absolute Nucleated RBC 0.000 X10*3/uL (0.0-0.012) 08/08/22 06:21 Nucleated RBC % (auto) 0.0 /100WBC (0.0-0.2) 08/08/22 06:21 Sodium 139 mmol/L (135-145) 08/08/22 06:21 Potassium 3.9 mmol/L (3.3-5.1) 08/08/22 06:21 Chloride 101 mmol/L (96-108) 08/08/22 06:21 Carbon Dioxide 24 mmol/L (22-29) 08/08/22 06:21 Anion Gap 18 (12-20) 08/08/22 06:21 BUN 21 mg/dL (9-16) H 08/08/22 06:21 Creatinine 1.55 mg/dL (0.5-1.4) H 08/08/22 06:21 Estim Creat Clear Calc 85.0 08/08/22 06:21 Estimated GFR 52 08/08/22 06:21 POC Glucose 168 mg/dL (60-115) H 08/07/22 21:20 Random Glucose 116 mg/dL (60-115) H 08/08/22 06:21 Estimat Average Glucose 108 mg/dL 08/07/22 20:16 Hemoglobin A1c % 5.4 % 08/07/22 20:16 Lactic Acid 3.5 mmol/L (0.5-2.0) H* 08/07/22 21:03 Lactic Acid F/U @ 2Hr 1.9 mmol/L (0.5-2.0) 08/07/22 23:38 Calcium 10.0 mg/dL (8.4-10.2) D 08/08/22 06:21 Total Bilirubin 1.5 mg/dL (0.0-1.0) H 08/07/22 20:16 AST 34 U/L (5-37) 08/07/22 20:16 ALT 35 U/L (0-40) 08/07/22 20:16 Alkaline Phosphatase 143 U/L (39-117) H 08/07/22 20:16 C-Reactive Protein 0.58 mg/dL (< or = 0.50) H 08/08/22 06:21 Total Protein 9.8 g/dL (6.5-8.0) H 08/07/22 20:16 Albumin 5.8 g/dL (3.5-5.0) H 08/07/22 20:16 Lipase 13 U/L (8-78) 08/07/22 20:16 Urine Color Yellow 08/07/22 22:45 Urine Appearance Clear 08/07/22 22:45 Urine pH 7.5 (5.0-9.0) 08/07/22 22:45 Ur Specific [place] 1.020 (1.005-1.025) 08/07/22 22:45 Urine Protein 30 (1+) mg/dL (Neg-Trace) H 08/07/22 22:45 Urine Glucose (UA) Negative mg/dL (Negative) 08/07/22 22:45 Urine Ketones Trace mg/dL (Negative) 08/07/22 22:45 Urine Blood Trace (Negative) H 08/07/22 22:45 Urine Nitrite Negative (Negative) 08/07/22 22:45 Ur Leukocyte Esterase Negative (Negative) 08/07/22 22:45 Urine RBC 0-2 /HPF (0-2) 08/07/22 22:45 Urine WBC 0-5 /HPF (0-5) 08/07/22 22:45 Ur Squamous Epith Cells 0-2 /HPF (0-2) 08/07/22 22:45 Leucine Crystals Present 12 22:45 Urine Bacteria None Seen (None Seen) 08/07/22 22:45 Hyaline Casts 11-20 /LPF (0-2) 08/07/22 22:45 Urine Opiates Screen POSITIVE (Not Detect) H 08/07/22 22:45 Urine Fentanyl Screen Not Detected (Not Detect) 12 22:45 Ur Barbiturates Screen Not Detected (Not Detect) 12 22:45 Ur Phencyclidine Scrn Not Detected (Not Detect) 12 22:45 Ur Amphetamines Screen Not Detected (Not Detect) 08/07/22 22:45 U Benzodiazepines Scrn Not Detected (Not Detect) 08/07/22 22:45 Urine Cocaine Screen Not Detected (Not Detect) 08/07/22 22:45 U Marijuana (THC) Screen POSITIVE (Not Detect) H 08/07/22 22:45 Ethyl Alcohol < 10 mg/dL 08/07/22 20:16 COVID-19 (RADHA) Negative (Negative) 08/07/22 20:16 COVID-19 Clin Com See Note 08/07/22 20:16 Influenza Type A (SEB) Negative (Negative) 08/07/22 20:16 Influenza Type B (SEB) Negative (Negative) 08/07/22 20:16 Influenza A & B Note See Note 08/07/22 20:16 Impressions Abdomen/Pelvis CT 08/07/22 21:13 IMPRESSION: No acute findings identified in the abdomen/pelvis. Normal appendix. Discharge Plan Discharge Patient Disposition: Left Against Medical Advice Discharge Diagnosis: left AGAINST MEDICAL ADVICE [facility] Referrals: Physician,None [Primary Care Provider] - 1 Week Discharge Medications: No Action No Known Home Meds Discharge Orders: Discharge Order (Routine); Ordered 02/25/23 Ordered By: Carlos Tinsley Care Plan Goals: RESOLUTION OF NORA [place] FROM DEPENDENCE ON CANNABIS Health Concerns: [facility] Plan of Treatment: SIGNED OUT AGAINST MEDICAL ADVICE DESPITE COUNSELING ON RISKS OF DISEASE AND DISABILITY RETURN TO [facility] TO COMPLETE TREATMENT Assessment: See Discharge Summary. Discharge Date/Time: 08/08/22 17:20
== END 2022-08-08 17:20 | disposition left against medical advice (07) | DRG 469 ==
LOC: HO.ED 22:34 → HO.EDOVER 22:48 → HO.S3 08-08 03:37
PROVIDERS: Physician Assistant; Student in an Organized Health Care Education/Training Program; Surgery; Admitting Provider Student in an Organized Health Care Education/Training Program; Emergency Provider Internal Medicine; Visit Provider Family Medicine
DX: N17.9 Acute kidney failure, unspecified (principal); E87.21 Acute metabolic acidosis; E86.0 Dehydration; R11.2 Nausea with vomiting, unspecified; D75.1 Secondary polycythemia; D72.829 Elevated white blood cell count, unspecified; F17.210 Nicotine dependence, cigarettes, uncomplicated; F12.10 Cannabis abuse, uncomplicated; Z71.6 Tobacco abuse counseling; N18.30 Chronic kidney disease, stage 3 unspecified; Z20.822 Contact with and (suspected) exposure to COVID-19
CPT/HCPCS: 36415; 74176; 80048; 80053; 80307; 81001; 82077; 82947; 83036; 83605; 83690; 85025; 86140; 87040; 87502; 87635; 99218; 99285; J2270; J2405; J2543; J2765

== ENCOUNTER 2024-01-20 21:46 | Emergency (ER) | payer OTHER, SELFPAY ==
[2024-01-20 22:24] VITALS: BP 144/96; PULSE 105; RESP 18; TEMP 36.6; O2SAT 96; BMI 28.6
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
== END 2024-01-21 01:08 | disposition left against medical advice (07) ==
PROVIDERS: Emergency Provider Emergency Medicine
DX: M54.2 Cervicalgia (principal); M54.9 Dorsalgia, unspecified; M79.673 Pain in unspecified foot
CPT/HCPCS: 99281